=== PATIENT | female | born 1990 | race Caucasian/White ===

== ENCOUNTER 2022-05-14 02:14 | Observation (INO) | payer MEDICAID, SELFPAY ==
[2022-05-14] MEDS ORDERED: Ondansetron PF 4 MG/2 ML Vial ONE ×3 (02:35→05:56)
[2022-05-14] MEDS ORDERED: Fentanyl 100 MCG/2 ML VIAL ONE ×2 (02:35→05:15)
[2022-05-14 03:00] LABS: Hemoglobin 9.3 g/dL (12.0-15.5); Mean Corpuscular HGB CONC 34.6 g/dL (32.0-36.0); Mean Corpuscular Hemoglobin 28.8 pg (27.0-33.0); Mean Corpuscular Volume 83.3 fl (81.6-98.3); Mean Platelet Volume 9.9 fl (7.4-10.4); Platelet Count 296 10x3/uL (150-450); RBC Distribution Width 12.7 % (11.5-14.5); Red Blood Cell (RBC) Count 3.23 10x6/uL (3.90-5.03); White Blood Cell (WBC) Count 12.1 10x3/uL (3.5-10.5)
[2022-05-14 03:20] LABS: MDiff Complete? YES
[2022-05-14 03:23] LABS: Band 7 % (5-11); Lymphocytes 6 % (21-51); Monocytes 4 % (0-10); Neutrophil 82 % (42-75); Platelet Morphology Comment Appears Adequate; Reactive Lymphocytes 1 % (0-10)
[2022-05-14 03:24] LABS: RBC Morphology Normal
[2022-05-14 04:11] LABS: SARS-CoV-2 NAA Rapid Test Not Detected (NotDetected)
[2022-05-14] MEDS ORDERED: Bupivacaine PF 0.5% 30 ML VIAL ONE (04:25)
[2022-05-14] MEDS ORDERED: EPINEPHrine 1 MG/ML AMP ONE (04:25)
[2022-05-14] MEDS ORDERED: Misoprostol 200 MCG TAB ONE (04:26)
[2022-05-14] MEDS ORDERED: Methylergonovine 0.2 MG/ML VIAL ONE (04:26)
[2022-05-14] MEDS ORDERED: Lidocaine 1% PF 5 ML VIAL ONE (04:38)
[2022-05-14] MEDS ORDERED: Metoclopramide HCl 10 MG/2 ML VIAL ONE (04:38)
[2022-05-14] MEDS ORDERED: Dexamethasone 4 mg/ml Vial ONE (04:38)
[2022-05-14] MEDS ORDERED: Rocuronium Bromide 10 MG/ML (10ML VIAL) ONE (04:38)
[2022-05-14] MEDS ORDERED: Midazolam HCl 2 mg/2 ml Vial ONE (04:38)
[2022-05-14] MEDS ORDERED: CEFAZOLIN 1 GM VIAL ONE (04:59)
[2022-05-14] MEDS ORDERED: PROPOFOL 20 ML ONE (05:36)
[2022-05-14] MEDS ORDERED: HYDROcodone/Acetaminophen 5/325 mg Tablet PO PRN ×2 (06:19)
[2022-05-14] MEDS ORDERED: Promethazine HCl 25 MG/ML VIAL IM PRN (06:19)
[2022-05-14] MEDS ORDERED: Ondansetron PF 4 MG/2 ML Vial IVP PRN ×2 (06:19→06:45)
[2022-05-14] MEDS ORDERED: Simethicone Chewable 80 MG TAB PO PRN (06:19)
[2022-05-14] MEDS ORDERED: diphenhydrAMINE 25 MG CAP PO PRN ×2 (06:19→06:45)
[2022-05-14] MEDS ORDERED: SUGAMMADEX SODIUM 200 MG/2 ML VIAL ONE (06:31)
[2022-05-14] MEDS ORDERED: Non-Formulary Medication 1 EACH PO PRN (06:36)
[2022-05-14] MEDS ORDERED: diphenhydrAMINE 50 MG/ML VIAL IM/IV PRN (06:45)
[2022-05-14] MEDS ORDERED: Ondansetron HCl/PF 4 MG/2 ML Vial IVP PRN (06:45)
[2022-05-14] MEDS ORDERED: Promethazine HCl 25 MG/ML VIAL IM/IV PRN (06:45)
[2022-05-14] MEDS ORDERED: Naloxone HCl 0.4 mg/ml Vial IV PRN (06:45)
[2022-05-14] MEDS ORDERED: Morphine 50 MG in Sodium Chloride 0.9% 45 ML IVPB SCH (06:45)
[2022-05-14] MEDS: Sodium Chloride 0.9% 1,000 ML IV SCH ×2 (10:09→18:00)
[2022-05-14 12:21] LABS: Hemoglobin 8.1 g/dL (12.0-15.5); Mean Corpuscular HGB CONC 33.8 g/dL (32.0-36.0); Mean Corpuscular Hemoglobin 28.5 pg (27.0-33.0); Mean Corpuscular Volume 84.5 fl (81.6-98.3); Mean Platelet Volume 9.9 fl (7.4-10.4); Platelet Count 259 10x3/uL (150-450); Red Blood Cell (RBC) Count 2.84 10x6/uL (3.90-5.03); White Blood Cell (WBC) Count 10.7 10x3/uL (3.5-10.5)
[2022-05-14] MEDS: Ketorolac Tromethamine 30 MG/ML VIAL IVP SCH ×3 (13:24→23:36)
[2022-05-14] MEDS ORDERED: Ibuprofen 800 MG TAB PO SCH (14:00)
[2022-05-15] MEDS: Sodium Chloride 0.9% 1,000 ML IV SCH ×2 (02:55→09:01)
[2022-05-15] MEDS: Ketorolac Tromethamine 30 MG/ML VIAL IVP SCH (05:48)
[2022-05-15] MEDS ORDERED: HYDROcodone/Acetaminophen 5/325 mg Tablet PO PRN ×2 (06:32)
[2022-05-15 09:01] LABS: Hemoglobin 7.2 g/dL (12.0-15.5); Platelet Count 219 10x3/uL (150-450)
[2022-05-15] MEDS ORDERED: Ibuprofen 800 MG TAB PO SCH (12:00)
[2022-05-15 15:19] LABS: Hemoglobin 7.2 g/dL (12.0-15.5)
[2022-05-15 16:48] VITALS: BP 114/59; TEMP 98
[2022-05-15] MEDS ORDERED: Ferrous Sulfate 325 MG TAB PO SCH (17:00)
== END 2022-05-15 17:02 | disposition home or self-care (01) ==
LOC: CSHERS 02:14 → CSHPP 08:29
PROVIDERS: ADMIT Obstetrics & Gynecology; ATTEND Obstetrics & Gynecology
PROC: 10T20ZZ Resection of Products of Conception, Ectopic, Open Approach (ICD-10-PCS; principal; 2022-05-14)
DX: O00.102 Left tubal pregnancy without intrauterine pregnancy (principal); K66.0 Peritoneal adhesions (postprocedural) (postinfection); Z20.822 Contact with and (suspected) exposure to COVID-19
CPT/HCPCS: 36415; 76856; 85014; 85018; 85025; 85049; 86850; 86900; 86901; 88305; 96374; 96375; 96376; G0378; J0171; J0690; J1100; J1885; J2210; J2250; J2270; J2405; J2704; J2765; J3010; J7050; S0020; U0002